=== PATIENT | female | born 1950 | race Caucasian/White ===

== ENCOUNTER 2022-08-13 14:01 | Outpatient (CLI) | payer MEDICARE | END 2022-08-13 14:02 | disposition home or self-care (01) | LOC: CSHMAMMO 14:01 | PROVIDERS: ATTEND Family Medicine | DX: Z12.31 Encounter for screening mammogram for malignant neoplasm of breast (principal) | CPT/HCPCS: 77063; 77067 ==

== ENCOUNTER 2023-05-16 11:34 | Outpatient (CLI) | payer MEDICARE | END 2023-05-16 11:35 | disposition home or self-care (01) | LOC: CSHMRI 11:34 | PROVIDERS: ATTEND Psychiatry & Neurology Neurology | DX: R41.3 Other amnesia (principal); G31.9 Degenerative disease of nervous system, unspecified | CPT/HCPCS: 70551 ==